=== PATIENT | male | born 1950 | race Hispanic/Latino ===

== ENCOUNTER 2017-03-28 07:00 | Day surgery (SDC) | payer MEDICARE, MEDICAID ==
[2017-03-28] MEDS ORDERED: Bupivacaine 0.5% Inj(30mL) ONE (09:01)
[2017-03-28] MEDS ORDERED: Lidocaine 1% Inj (20ml) ONE (09:12)
[2017-03-28] MEDS ORDERED: Propofol 10 mg/ml Inj (20 ML) ONE (09:12)
[2017-03-28] MEDS ORDERED: Etomidate 20 mg/10ml Inj IV ONE (09:12)
[2017-03-28] MEDS ORDERED: Sevoflurane - Inhalation Anesthetic Liq (250 ml) ONE (09:13)
[2017-03-28] MEDS ORDERED: ePHEDrine 50 mg/ml Inj ONE (09:24)
[2017-03-28] MEDS ORDERED: CeFAZolin 1 gm in NS 100ml IVPB ONE (09:30)
[2017-03-28] MEDS ORDERED: Bupivacaine 0.5% Inj(30mL) IJ ONE ×2 (09:41→09:49)
[2017-03-28] MEDS ORDERED: Oxycodone/Acetaminophen 5/325 mg Tab PO PRN (11:02)
[2017-03-28] MEDS ORDERED: HYDROmorphone 0.5 mg/0.5 ml ISec IVP PRN (11:04)
--- NOTE | 2017-03-28 11:07 | PCM.SURG1 ---
<Vani Cerna - Last Filed: 03/28/17 11:04> Surgeon's Initial Post Op Note - Surgeon's Notes Surgeon: Dr. Gil Bead Wrapper: Carissa Stack, PGY3. Vani Cerna, PGY2 Type of Anesthesia: General LMA Pre-Operative Diagnosis: left inguinal hernia Operative Findings: left indirect inguinal hernia Post-Operative Diagnosis: same Operation Performed: left inguinal hernia reapir with mesh Specimen/Specimens Removed: hernia sac Estimated Blood Loss: EBL {In ML}: 5 Post-Op Condition: Fair Date of Surgery/Procedure: 03/28/17 Time of Surgery/Procedure: 09:15 <Dillan Gil - Last Filed: 03/28/17 23:54> Surgeon's Initial Post Op Note - Surgeon's Notes Pre-Operative Diagnosis: incarcerated left inguinal hernia Operative Findings: incarcerated left indirect inguinal hernia Operation Performed: repair of incarcerated left inguinal hernia
[2017-03-28] MEDS ORDERED: Lactated Ringer's 1,000 ML IV SCH (11:15)
[2017-03-28] MEDS ORDERED: Oxycodone/Acetaminophen 5/325 mg Tab ONE (11:30)
[2017-03-28 11:58] VITALS: BP 107/66; PULSE 73; RESP 20; TEMP 97.7; O2SAT 96
[2017-03-28 12:43] VITALS: BMI 21.7
--- NOTE | 2017-04-05 00:53 | OP ---
PROCEDURE DATE: 03/28/2017 PREOPERATIVE DIAGNOSIS: Incarcerated left inguinal hernia. POSTOPERATIVE DIAGNOSIS: Incarcerated left inguinal hernia. PROCEDURE PERFORMED: Repair of the left incarcerated inguinal hernia. SURGEON: Dillan Gil MD. BLOCK CLEANER: Dr. Cerna and Dr. Stack. ANESTHESIOLOGIST: Dr. Pierson. ANESTHESIA: General endotracheal anesthesia. ESTIMATED BLOOD LOSS: Minimal. SPECIMEN: None. INDICATION: Patient is a 66-year-old male with history of left groin pain associated with tenderness and discomfort. Patent was seen in the office, noted to have a left inguinal hernia, which was incarcerated and was scheduled for the repair. DESCRIPTION OF PROCEDURE: Patient was brought to the operating room, placed on the operating table in a supine position. Patient was connected to the EKG, blood pressure and pulse oximetry monitors. Patient then underwent general endotracheal anesthesia and was prepped and draped in usual sterile fashion. First, standard time-out procedure took place and everybody in the room were agreed as to the patient identity, diagnosis and procedure to be performed. Using lidocaine mixed with Marcaine, the area of the incision was infiltrated and carefully infusion made through the skin, subcutaneous fat, down to the external oblique aponeurosis. This was then incised along its fibers and elevated on to mosquito clamps. The Weitlaner retractor was placed in and spread external oblique aponeurosis. This exposed the spermatic cord with its structures and the hernia within it. A careful dissection was done in order to separate the hernia sac from the cord structures and in order to reduce the hernia, carefully the neck of the hernia was incised in order to loosen up and remove the content of the hernia which was omentum. Once this was done, the hernia itself was sutured over and placed back into the abdominal cavity. The hernia appeared to be a direct hernia and therefore the sac was not resected. Once this was done, I then carefully entered the internal inguinal ring and dissected out the preperitoneal fat. Next, an UltraPro mesh was placed into the defect and spread underneath floor of the inguinal canal through the internal ring of the inguinal canal. The external portion of the mesh patch was then spread flatly on the floor of the inguinal canal and the keyhole was cut out for exit site of the spermatic cord with structures. Once this was all placed flatly on the floor, the ilioinguinal nerve was identified and carefully pushed to side in order to avoid injury. The external oblique aponeurosis was then carefully closed using 3-0 Vicryl. The subcutaneous tissues were infiltrated with lidocaine mixed with Toradol. The skin was closed using 3-0 Vicryl for the deep dermal layer and 4-0 Monocryl for skin. Sterile Dermabond dressing was applied to the wound. Patient tolerated the procedure well and there were no complications. Patient was awakened and transferred to the recovery room for further observation. Dillan Gil MD
== END 2017-03-28 12:30 | disposition home or self-care (01) ==
LOC: SDS 07:00
PROVIDERS: ATTEND General Practice
DX: K40.30 Unilateral inguinal hernia, with obstruction, without gangrene, not specified as recurrent (principal); I10 Essential (primary) hypertension; E11.9 Type 2 diabetes mellitus without complications; Z79.4 Long term (current) use of insulin
CPT/HCPCS: 49507; 88302; C1781; J0690; J1170; J1885; J2405; J2704; J3010; J7120 ×2

== ENCOUNTER 2018-01-18 21:28 | Inpatient (IN) | payer MEDICARE, MEDICAID ==
--- NOTE | 2018-01-18 22:00 | ED PDOC ---
Arrival/HPI - General Chief Complaint: Altered Mental Status Time Seen by Provider: 01/18/18 21:36 Historian: Patient - History of Present Illness Narrative History of Present Illness (Text): 01/18/18 22:00 Antonio Meeks is a 67 year old male, whose past medical history includes Hepatitis C, liver failure, COPD, hypertension, diabetes, diverticulitis s/p colon resection, GERD, and anxiety, who presents to the emergency department brought in by EMS accompanied by daughter for altered mental status, possible drug overdose. As per daughter, patient has been sleeping throughout the day and did not eat or drink much food. Daughter states tonight patient would not respond to any question and they became concerned, notifying EMS. Patient states he took 30 Xanax today because he felt anxious. Patient denies any suicidal ideation, chest pain, abdominal pain, vomiting, headache, dizziness, or any other complaints. Symptom Onset: Gradual Symptom Course: Unchanged Activities at Onset: Light Context: Home Past Medical History - Provider Review Nursing Documentation Reviewed: Yes - Cardiac Hx Pacemaker: No - Pulmonary Hx Respiratory Disorders: Yes (LUNG COLLAPSE/HISTORY OF CHEST TUBE PLACEMENT) Hx Chronic Obstructive Pulmonary Disease (COPD): Yes Hx Emphysema: Yes Other/Comment: SMOKED 1 PPD X 45 YRS. 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) - Renal Hx Renal Disorder: No - Endocrine/Metabolic Hx Endocrine Disorders: No - Hematological/Oncological Hx Blood Transfusions: Yes Hx Blood Transfusion Reaction: No - Integumentary Hx Dermatological Disorder: No - Musculoskeletal/Rheumatological Hx Musculoskeletal Disorders: Yes - Gastrointestinal Hx Gastrointestinal Disorders: Yes Hx Diverticulitis: Yes Hx Gall Bladder Disease: Yes Hx Gastroesophageal Reflux: Yes Hx Liver Failure: Yes Other/Comment: H/O APPENDECTOMY,SIGMOID COLON DIVERTICULITIS,POST EXPLORATORY LAP SIGMOID COLON RESECTION,RIGHT INGUINAL HERNIA REPAIR,H/O CONSTIPATION - Genitourinary/Gynecological Hx Genitourinary Disorders: No - Psychiatric Hx Emotional Abuse: No Hx Physical Abuse: No Hx Substance Use: Yes (OPIOID USE, RX ) - Surgical History Hx Appendectomy: Yes Hx Cholecystectomy: Yes Other/Comment: EXPLORATORY LAP-SIGMOID COLON RESECTION,PARTIAL COLECTOMY - Anesthesia Hx Anesthesia: No Hx Anesthesia Reactions: No Hx Malignant Hyperthermia: No - Suicidal Assessment Feels Threatened In Home Enviroment: No Family/Social History - Physician Review Nursing Documentation Reviewed: Yes Family/Social History: Unknown Family HX Smoking Status: Current Some Days Smoker Hx Alcohol Use: Yes (PAST ETOH;"QUIT 09/2015 AFTER FALL) Hx Substance Use: Yes (OPIOID USE, RX ) Hx Substance Use Treatment: No Allergies/Home Meds Allergies/Adverse Reactions: Allergies No Known Allergies Allergy (Verified 09/27/15 15:31) Home Medications: Home Meds Medication Instructions Recorded Confirmed RX: Alprazolam [Xanax] 0.05 mg PO TID 10/30/11 03/28/17 RX: Oxycodone HCl [Roxicodone] 20 mg PO Q8 09/29/15 03/28/17 RX: Insulin Detemir [Levemir] 16 unit SC HS 02/18/16 03/28/17 RX: Hydrochlorothiazide [Microzide] 25 mg PO DAILY 02/23/16 03/28/17 amLODIPine [Norvasc] 5 mg PO DAILY 02/23/16 03/28/17 RX: traMADol [Ultram] 50 mg PO Q6 PRN 03/28/17 03/28/17 Review of Systems - Physician Review All systems were reviewed & negative as marked: Yes - Review of Systems Constitutional: Normal. absent: Fevers Eyes: Normal ENT: Normal Respiratory: Normal. absent: SOB, Cough Cardiovascular: Normal. absent: Chest Pain Genitourinary Male: Normal. absent: Dysuria, Frequency, Hematuria, Urinary Output Changes Musculoskeletal: Normal. absent: Back Pain, Neck Pain Skin: Normal. absent: Rash Neurological: Normal. absent: Headache, Dizziness Endocrine: Normal Hemo/Lymphatic: Normal Psychiatric: absent: Suicidal Ideation Physical Exam Vital Signs Reviewed: Yes Vital Signs Temp Pulse Resp BP Pulse Ox 01/18/18 21:37 97.5 F L 82 18 134/92 H 95 Temperature: Afebrile Blood Pressure: Normal Pulse: Regular Respiratory Rate: Normal Appearance: Positive for: Well-Appearing, Non-Toxic, Comfortable Pain Distress: None Mental Status: Positive for: other (Awake, drowsy) Finger Stick Blood Glucose: 85 - Systems Exam Head: Present: Atraumatic, Normocephalic Pupils: Present: PERRL Extroacular Muscles: Present: EOMI Conjunctiva: Present: Normal Mouth: Present: Moist Mucous Membranes Neck: Present: Normal Range of Motion Respiratory/Chest: Present: Clear to Auscultation, Good Air Exchange. No: Respiratory Distress, Accessory Muscle Use Cardiovascular: Present: Regular Rate and Rhythm, Normal S1, S2. No: Murmurs Abdomen: No: Tenderness, Distention, Peritoneal Signs Back: Present: Normal Inspection Upper Extremity: Present: Normal Inspection. No: Cyanosis, Edema Lower Extremity: Present: Normal Inspection. No: Edema Neurological: Present: GCS=15, CN II-XII Intact, Speech Normal Skin: Present: Warm, Dry, Normal Color. No: Rashes Psychiatric: Present: Other (Awake, drowsy) Medical Decision Making ED Course and Treatment: 01/18/18 22:00 Impression: 67 year old male brought in for altered mental status, possible drug overdose tonight. Plan: -- EKG -- CXR -- Labs, alcohol level -- Urinalysis, urine drug screen -- Reassess and disposition Prior Visits: Notes and results from previous visits were reviewed. Progress Notes: Reviewed EKG, NSr at 84 bpm[address] Non-specific ST/T wave changes. 01/18/18 22:40 CXR reviewed, shows no acute processes. 01/19/18 00:[address] Arredondo, dance studio manager, who is aware and agrees to evaluate pt for ICU admission. 01/19/18 00:[address] Messina, who is aware and agrees with plan. Accepts pt in to her service. Pt will be admitted to ICU for drug overdose. - Critical Care Critical Care Minutes: 30 minutes - Lab Interpretations I have reviewed the lab results: Yes - RAD Interpretation Sales Order Clerk: ED Physician - EKG Interpretation Interpreted by ED Physician: Yes Type: 12 lead EKG - Scribe Statement The provider has reviewed the documentation as recorded by the Lisa López Provider Scribe Attestation: All medical record entries made by the Scribjuan manuel were at my direction and personally dictated by me. I have reviewed the chart and agree that the record accurately reflects my personal performance of the history, physical exam, medical decision making, and the department course for this patient. I have also personally directed, reviewed, and agree with the discharge instructions and disposition. Disposition/Present on Arrival - Present on Arrival Any Indicators Present on Arrival: No History of DVT/PE: No History of Uncontrolled Diabetes: No Urinary Catheter: No History of Decub. Ulcer: No History Surgical Site Infection Following: None - Disposition Have Diagnosis and Disposition been Completed?: Yes Diagnosis: Benzodiazepine overdose Disposition: HOSPITALIZED Disposition Time: 00:24 Patient Plan: Admission Patient Problems: Current Active Problems Problem Status Onset Benzodiazepine overdose Acute Condition: STABLE
[2018-01-18 22:25] LABS: BASO # 0.01 K/mm3 (0.0-2.0); BASO % 0.1 % (0.0-3.0); EOS # 0.2 (0.0-0.7); EOS % 1.7 % (1.5-5.0); GRAN # 6.69 (1.4-6.5); GRAN % 73.8 % (50.0-68.0); HEMOGLOBIN 16.3 g/dL (14.0-18.0); LYMPH # 1.2 (1.2-3.4); LYMPH % 13.3 % (22.0-35.0); MEAN CELL VOLUME 91.7 fl (80.0-105.0); MEAN CORPUSCULAR HEMOGLOBIN 32.3 pg (25.0-35.0); MEAN CORPUSCULAR HGB CONC 35.2 g/dl (31.0-37.0); MEAN PLATELET VOLUME 8.9 fl (7.0-11.0); MONO % 11.1 % (1.0-6.0); RBC 5.05 10^6/uL (3.5-6.1); RED CELL DISTRIBUTION WIDTH 13.5 % (11.5-14.5); WHITE BLOOD COUNT 9.1 10^3/uL (4.5-11.0)
[2018-01-18 22:33] LABS: ALB/GLOB RATIO 1.2 (1.1-1.8); ALBUMIN 4.1 g/dL (3.0-4.8); ALT/SGPT 39 U/L (7-56); AST/SGOT 33 U/L (17-59); BLOOD UREA NITROGEN 13 mg/dL (7-21); CALCIUM 8.9 mg/dL (8.4-10.5); GFR NON-AFRICAN AMERICAN > 60
[2018-01-18 22:34] LABS: ACETAMINOPHEN < 10.0 ug/ml (10.0-20.0); SALICYLATE < 1 mg/dL (2.0-20.0)
[2018-01-19] MEDS: Sodium Chloride 0.9% 1,000 ML IV SCH ×3 (00:57→22:26)
--- NOTE | 2018-01-19 04:58 | CP.PCM.HP ---
<Tariq Dill - Last Filed: 01/19/18 05:19> History of Present Illness - History of Present Illness History of Present Illness: H&P for Hsopitalist Service Tariq Fuentes PGY1 Chief complaint: Xanax overdose Patient is a 67 male with a past medical history of hypertension, COPD, chronic back pain, hepatitis C (untreated), pancreatitis, alcohol abuse, IDDM presenting s/p xanax overdose. As per patient's daughter, patient seems to be depressed as of late. States his girlfriend recently stopped communicating with him. Patient lives at home with and daughter. As per patient ad patient's daughter this past day prior to taking too many xanax was like any normal day where he wakes up gets breakfast from his ex and yells all day at everyone. During patient encounter he was laughing t times and asking to leave AMA. Patient states he did not take the xanax with hopes of hurting himself but mainly to help him sleep however patient took all pills at once. As per daughter this is the third time patient has attempted to overdose on medications. ROS limited due to patient's condition. PMD: Dr. Vásquez Medications: Xanax 0.5 TID Surgical Hx: inguinal hernia repair Allergies: NKDA Family Hx: Non-contributory Social history: admits to tobacco use Present on Admission - Present on Admission Any Indicators Present on Admission: No Review of Systems - Review of Systems Systems not reviewed;Unavailable: Uncooperative Past Patient History - Past Social History Smoking Status: Current Some Days Smoker - CARDIAC Hx Pacemaker: No - PULMONARY Hx Respiratory Disorders: Yes (LUNG COLLAPSE/HISTORY OF CHEST TUBE PLACEMENT) Hx Chronic Obstructive Pulmonary Disease (COPD): Yes Hx Emphysema: Yes Other/Comment: SMOKED 1 PPD X 45 YRS. 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) - RENAL Hx Chronic Kidney Disease: No - ENDOCRINE/METABOLIC Hx Endocrine Disorders: No - HEMATOLOGICAL/ONCOLOGICAL Hx Blood Transfusions: Yes Hx Blood Transfusion Reaction: No - INTEGUMENTARY Hx Dermatological Problems: No - MUSCULOSKELETAL/RHEUMATOLOGICAL Hx Musculoskeletal Disorders: Yes - GASTROINTESTINAL Hx Gastrointestinal Disorders: Yes Hx Diverticulitis: Yes Hx Gall Bladder Disease: Yes Hx Gastroesophageal Reflux: Yes Hx Liver Failure: Yes Other/Comment: H/O APPENDECTOMY,SIGMOID COLON DIVERTICULITIS,POST EXPLORATORY LAP SIGMOID COLON RESECTION,RIGHT INGUINAL HERNIA REPAIR,H/O CONSTIPATION - GENITOURINARY/GYNECOLOGICAL Hx Genitourinary Disorders: No - PSYCHIATRIC Hx Emotional Abuse: No Hx Physical Abuse: No Hx Substance Use: Yes (OPIOID USE, RX ) - SURGICAL HISTORY Hx Appendectomy: Yes Hx Cholecystectomy: Yes Other/Comment: EXPLORATORY LAP-SIGMOID COLON RESECTION,PARTIAL COLECTOMY - ANESTHESIA Hx Anesthesia: No Hx Anesthesia Reactions: No Hx Malignant Hyperthermia: No Meds Allergies/Adverse Reactions: Allergies Allergy/AdvReac Type Severity Reaction Status Date / Time No Known Allergies Allergy Verified 09/27/15 15:31 Physical Exam - Head Exam Head Exam: ATRAUMATIC, NORMAL INSPECTION, NORMOCEPHALIC - Eye Exam Eye Exam: Normal appearance - ENT Exam ENT Exam: Mucous Membranes Moist, Normal Exam - Neck Exam Neck exam: Positive for: Normal Inspection - Respiratory Exam Respiratory Exam: Clear to Auscultation Bilateral, NORMAL BREATHING PATTERN. absent: Rhonchi, Wheezes - Cardiovascular Exam Cardiovascular Exam: REGULAR RHYTHM, +S1, +S2 - GI/Abdominal Exam GI & Abdominal Exam: Normal Bowel Sounds, Soft - Extremities Exam Extremities exam: Positive for: normal inspection - Back Exam Back exam: NORMAL INSPECTION - Neurological Exam Neurological exam: Alert - Psychiatric Exam Psychiatric exam: Normal Affect, Normal Mood - Skin Skin Exam: Normal Color, Warm Results - Vital Signs Recent Vital Signs: Last Vital Signs Temp 98.5 F 01/19/18 03:00 Pulse 82 01/19/18 04:00 Resp 17 01/19/18 04:00 BP 127/84 01/19/18 02:15 Pulse Ox 93 L 01/19/18 04:00 - Labs Result Diagrams: 01/18/18 22:19 01/18/18 22:19 Labs: Laboratory Results - last 24 hr 01/18/18 01/18/18 01/18/18 22:19 22:19 22:19 WBC 9.1 RBC 5.05 Hgb 16.3 Hct 46.3 MCV 91.7 MCH 32.3 MCHC 35.2 RDW 13.5 Plt Count 204 MPV 8.9 Gran % 73.8 H Lymph % (Auto) 13.3 L [place] % (Auto) 11.1 H Eos % (Auto) 1.7 Baso % (Auto) 0.1 Gran # 6.69 H Lymph # (Auto) 1.2 [place] # (Auto) 1.0 H Eos # (Auto) 0.2 Baso # (Auto) 0.01 Sodium 140 Potassium 3.9 Chloride 105 Carbon Dioxide 28 Anion Gap 11 BUN 13 Creatinine 0.8 Est GFR ( Amer) > 60 Est GFR (Non-Af Amer) > 60 Random Glucose 93 Calcium 8.9 Total Bilirubin 0.8 AST 33 ALT 39 Alkaline Phosphatase 108 Total Protein 7.3 Albumin 4.1 Globulin 3.3 Albumin/Globulin Ratio 1.2 Salicylates < 1 L Acetaminophen < 10.0 L Alcohol, Quantitative 01/18/18 22:19 WBC RBC Hgb Hct MCV MCH MCHC RDW Plt Count MPV Gran % Lymph % (Auto) [place] % (Auto) Eos % (Auto) Baso % (Auto) Gran # Lymph # (Auto) [place] # (Auto) Eos # (Auto) Baso # (Auto) Sodium Potassium Chloride Carbon Dioxide Anion Gap BUN Creatinine Est GFR ( Amer) Est GFR (Non-Af Amer) Random Glucose Calcium Total Bilirubin AST ALT Alkaline Phosphatase Total Protein Albumin Globulin Albumin/Globulin Ratio Salicylates Acetaminophen Alcohol, Quantitative < 10 Assessment & Plan - Assessment and Plan (Free Text) Assessment: Patient is a 67 male with a past medical history of hypertension and NIDDM presenting s/p xanax overdose. Plan: Neuro/Psych -AAOx2 -Continue to monitor patient's mental status -Psychiatry consulted for patient's depression -Continue with 1:1 sitter for suicidal ideation Cardiovascular -Maintain MAP >65 -Keep normotensive Pulmonary -Keep O2 sat >92% -Duonebs PRN Endocrine -ISS-low -accuchecks -Maintain eugylcemia -Insulin on Hold due to blood glucose 93 Genitourinary -IVF@100 -Bladder scan -I&O -Maintain electrolytes and replete as needed -Maintain euvolemia DVT ppx: SCDs <Ryan Arredondo - Last Filed: 01/19/18 19:06> Results - Vital Signs Recent Vital Signs: Last Vital Signs Temp 98.8 F 01/19/18 16:00 Pulse 89 01/19/18 16:12 Resp 21 01/19/18 16:12 BP 125/83 01/19/18 16:12 Pulse Ox 94 L 01/19/18 16:12 - Labs Result Diagrams: 01/19/18 08:15 01/19/18 08:15 Labs: Laboratory Results - last 24 hr 01/18/18 01/18/18 01/18/18 22:19 22:19 22:19 WBC 9.1 RBC 5.05 Hgb 16.3 Hct 46.3 MCV 91.7 MCH 32.3 MCHC 35.2 RDW 13.5 Plt Count 204 MPV 8.9 Gran % 73.8 H Lymph % (Auto) 13.3 L [place] % (Auto) 11.1 H Eos % (Auto) 1.7 Baso % (Auto) 0.1 Gran # 6.69 H Lymph # (Auto) 1.2 [place] # (Auto) 1.0 H Eos # (Auto) 0.2 Baso # (Auto) 0.01 Sodium 140 Potassium 3.9 Chloride 105 Carbon Dioxide 28 Anion Gap 11 BUN 13 Creatinine 0.8 Est GFR ( Amer) > 60 Est GFR (Non-Af Amer) > 60 Random Glucose 93 Calcium 8.9 Total Bilirubin 0.8 AST 33 ALT 39 Alkaline Phosphatase 108 Total Protein 7.3 Albumin 4.1 Globulin 3.3 Albumin/Globulin Ratio 1.2 Salicylates < 1 L Acetaminophen < 10.0 L Alcohol, Quantitative 01/18/18 01/19/18 01/19/18 22:19 08:15 08:15 WBC 8.8 RBC 5.17 Hgb 16.3 Hct 47.9 MCV 92.6 MCH 31.5 MCHC 34.0 RDW 13.6 Plt Count 177 MPV 8.9 Gran % 74.6 H Lymph % (Auto) 12.6 L [place] % (Auto) 11.1 H Eos % (Auto) 1.6 Baso % (Auto) 0.1 Gran # 6.59 H Lymph # (Auto) 1.1 L [place] # (Auto) 1.0 H Eos # (Auto) 0.1 Baso # (Auto) 0.01 Sodium 142 Potassium 4.1 Chloride 107 Carbon Dioxide 27 Anion Gap 13 BUN 15 Creatinine 0.8 Est GFR ( Amer) > 60 Est GFR (Non-Af Amer) > 60 Random Glucose 97 Calcium 8.9 Total Bilirubin 0.7 AST 43 ALT 48 Alkaline Phosphatase 113 Total Protein 7.4 Albumin 4.1 Globulin 3.3 Albumin/Globulin Ratio 1.2 Salicylates Acetaminophen Alcohol, Quantitative < 10 Attending/Attestation - Attestation I have personally seen and examined this patient.: Yes I have fully participated in the care of the patient.: Yes I have reviewed all pertinent clinical information: Yes
[2018-01-19 05:04] VITALS: BMI 20.3
[2018-01-19] MEDS: Pantoprazole 40 mg EC Tab PO SCH (08:09)
[2018-01-19 08:35] LABS: BASO # 0.01 K/mm3 (0.0-2.0); BASO % 0.1 % (0.0-3.0); EOS # 0.1 (0.0-0.7); EOS % 1.6 % (1.5-5.0); GRAN # 6.59 (1.4-6.5); GRAN % 74.6 % (50.0-68.0); HEMOGLOBIN 16.3 g/dL (14.0-18.0); LYMPH # 1.1 (1.2-3.4); LYMPH % 12.6 % (22.0-35.0); MEAN CELL VOLUME 92.6 fl (80.0-105.0); MEAN CORPUSCULAR HEMOGLOBIN 31.5 pg (25.0-35.0); MEAN PLATELET VOLUME 8.9 fl (7.0-11.0); MONO % 11.1 % (1.0-6.0); RBC 5.17 10^6/uL (3.5-6.1); RED CELL DISTRIBUTION WIDTH 13.6 % (11.5-14.5); WHITE BLOOD COUNT 8.8 10^3/uL (4.5-11.0)
[2018-01-19 08:58] LABS: ALB/GLOB RATIO 1.2 (1.1-1.8); ALBUMIN 4.1 g/dL (3.0-4.8); ALT/SGPT 48 U/L (7-56); AST/SGOT 43 U/L (17-59); BLOOD UREA NITROGEN 15 mg/dL (7-21); CALCIUM 8.9 mg/dL (8.4-10.5); GFR NON-AFRICAN AMERICAN > 60
[2018-01-19] MEDS ORDERED: Dextrose 50% SYRINGE Inj (50 ml) IV PRN (09:24)
--- NOTE | 2018-01-19 09:27 | CP.CCUPN ---
<Antonio Mejia - Last Filed: 01/19/18 12:41> CCU Subjective - Physician Review Subjective (Free Text): Antonio Mejia DO, PGY1. ICU progress note for Dr Frederick Patient seen and examined at bedside. He is AAOx3, in NAD but feeling sad and not answering questions, frequently says that he wants to go home. He denied any complains . No acute events overnight. Patient denied CP, SOB, fever, palpitations, N/V/D, focal neurologic deficits CCU Objective - Vital Signs / Intake & Output Vital Signs (Last 4 hours): Vital Signs Temp Pulse Resp BP Pulse Ox 01/19/18 08:00 89 17 92 L 01/19/18 07:49 92 H 20 141/73 95 01/19/18 07:20 91 H 134/94 H 93 L 01/19/18 07:19 89 21 129/87 93 L 01/19/18 07:00 83 22 92 L 01/19/18 06:00 98.6 F 85 21 93 L 01/19/18 05:43 88 17 129/84 91 L 01/19/18 05:40 87 17 91 L 01/19/18 05:30 86 18 92 L Intake and Output (Last 8hrs): Intake & Output 01/18/18 01/19/18 01/19/18 22:59 06:59 14:59 Intake Total 700 Output Total 0 Balance 700 Weight 138 lb 138 lb Intake: IV 700 Left Wrist 700 Oral 0 Output: Urine 0 Urine, Voided 0 Other: # Bowel Movements 0 - Physical Exam Head: Positive for: Atraumatic, Normocephalic Pupils: Positive for: PERRL Extroacular Muscles: Positive for: EOMI Conjunctiva: Positive for: Normal Mouth: Positive for: Moist Mucous Membranes Neck: Positive for: Normal Range of Motion Respiratory/Chest: Positive for: Clear to Auscultation, Good Air Exchange. Negative for: Respiratory Distress, Accessory Muscle Use Cardiovascular: Positive for: Regular Rate and Rhythm, Normal S1, S2. Negative for: Murmurs Abdomen: Negative for: Tenderness, Distention, Peritoneal Signs Back: Positive for: Normal Inspection Upper Extremity: Positive for: Normal Inspection. Negative for: Cyanosis, Edema Lower Extremity: Positive for: Normal Inspection. Negative for: Edema Neurological: Positive for: CN II-XII Intact, Speech Normal, Motor Func Grossly Intact Skin: Positive for: Warm, Dry, Normal Color. Negative for: Rashes Psychiatric: Positive for: Oriented x 3, Anxious, Depressed Mood - Medications Active Medications: Active Medications Generic Name Dose Route Start Last Admin Trade Name Freq PRN Reason Stop Dose Admin Amlodipine Besylate 5 mg 01/19/18 10:00 Norvasc PO DAILY MARLEN Dextrose 0 ml 01/19/18 09:24 Dextrose 50% Inj IV STAT PRN Hypoglycemia Protocol Protocol Sodium Chloride 1,000 mls @ 100 mls/hr 01/19/18 00:45 01/19/18 00:57 Sodium Chloride 0.9% IV 100 mls/hr .Q10H MARLEN Administration Dextrose 1,000 mls @ 0 mls/hr 01/19/18 09:24 Dextrose 5% In Water 1000 Ml IV .Q0M PRN Hypoglycemia Protocol Protocol Per Protocol Insulin Detemir 10 unit 01/19/18 22:00 Levemir SC HS [facility] Pantoprazole Sodium 40 mg 01/19/18 06:00 01/19/18 08:09 Protonix Ec Tab PO 40 mg 0600 MARLEN Administration - Patient Studies Lab Studies: Lab Studies 01/19/18 01/19/18 01/18/18 Range/Units 08:15 08:15 22:19 WBC 8.8 (4.5-11.0) 10^3/uL RBC 5.17 (3.5-6.1) 10^6/uL Hgb 16.3 (14.0-18.0) g/dL Hct 47.9 (42.0-52.0) % MCV 92.6 (80.0-105.0) fl MCH 31.5 (25.0-35.0) pg MCHC 34.0 (31.0-37.0) g/dl RDW 13.6 (11.5-14.5) % Plt Count 177 (120.0-450.0) 10^3/uL MPV 8.9 (7.0-11.0) fl Gran % 74.6 H (50.0-68.0) % Lymph % (Auto) 12.6 L (22.0-35.0) % [place] % (Auto) 11.1 H (1.0-6.0) % Eos % (Auto) 1.6 (1.5-5.0) % Baso % (Auto) 0.1 (0.0-3.0) % Gran # 6.59 H (1.4-6.5) Lymph # (Auto) 1.1 L (1.2-3.4) [place] # (Auto) 1.0 H (0.1-0.6) Eos # (Auto) 0.1 (0.0-0.7) Baso # (Auto) 0.01 (0.0-2.0) K/mm3 Sodium 142 (132-148) mmol/L Potassium 4.1 (3.6-5.0) mmol/L Chloride 107 (98-107) mmol/L Carbon Dioxide 27 (21-33) mmol/L Anion Gap 13 (10-20) BUN 15 (7-21) mg/dL Creatinine 0.8 (0.8-1.5) mg/dl Est GFR ( Amer) > 60 Est GFR (Non-Af Amer) > 60 Random Glucose 97 (70-110) mg/dL Calcium 8.9 (8.4-10.5) mg/dL Total Bilirubin 0.7 (0.2-1.3) mg/dL AST 43 (17-59) U/L ALT 48 (7-56) U/L Alkaline Phosphatase 113 (38-126) U/L Total Protein 7.4 (5.8-8.3) g/dL Albumin 4.1 (3.0-4.8) g/dL Globulin 3.3 gm/dL Albumin/Globulin Ratio 1.2 (1.1-1.8) Salicylates (2.0-20.0) mg/dL Acetaminophen (10.0-20.0) ug/ml Alcohol, Quantitative < 10 (0-10) mg/dL 01/18/18 01/18/18 01/18/18 Range/Units 22:19 22:19 22:19 WBC 9.1 (4.5-11.0) 10^3/uL RBC 5.05 (3.5-6.1) 10^6/uL Hgb 16.3 (14.0-18.0) g/dL Hct 46.3 (42.0-52.0) % MCV 91.7 (80.0-105.0) fl MCH 32.3 (25.0-35.0) pg MCHC 35.2 (31.0-37.0) g/dl RDW 13.5 (11.5-14.5) % Plt Count 204 (120.0-450.0) 10^3/uL MPV 8.9 (7.0-11.0) fl Gran % 73.8 H (50.0-68.0) % Lymph % (Auto) 13.3 L (22.0-35.0) % [place] % (Auto) 11.1 H (1.0-6.0) % Eos % (Auto) 1.7 (1.5-5.0) % Baso % (Auto) 0.1 (0.0-3.0) % Gran # 6.69 H (1.4-6.5) Lymph # (Auto) 1.2 (1.2-3.4) [place] # (Auto) 1.0 H (0.1-0.6) Eos # (Auto) 0.2 (0.0-0.7) Baso # (Auto) 0.01 (0.0-2.0) K/mm3 Sodium 140 (132-148) mmol/L Potassium 3.9 (3.6-5.0) mmol/L Chloride 105 (98-107) mmol/L Carbon Dioxide 28 (21-33) mmol/L Anion Gap 11 (10-20) BUN 13 (7-21) mg/dL Creatinine 0.8 (0.8-1.5) mg/dl Est GFR ( Amer) > 60 Est GFR (Non-Af Amer) > 60 Random Glucose 93 (70-110) mg/dL Calcium 8.9 (8.4-10.5) mg/dL Total Bilirubin 0.8 (0.2-1.3) mg/dL AST 33 (17-59) U/L ALT 39 (7-56) U/L Alkaline Phosphatase 108 (38-126) U/L Total Protein 7.3 (5.8-8.3) g/dL Albumin 4.1 (3.0-4.8) g/dL Globulin 3.3 gm/dL Albumin/Globulin Ratio 1.2 (1.1-1.8) Salicylates < 1 L (2.0-20.0) mg/dL Acetaminophen < 10.0 L (10.0-20.0) ug/ml Alcohol, Quantitative (0-10) mg/dL Laboratory Results - last 24 hr 01/18/18 01/18/18 01/18/18 22:19 22:19 22:19 WBC 9.1 RBC 5.05 Hgb 16.3 Hct 46.3 MCV 91.7 MCH 32.3 MCHC 35.2 RDW 13.5 Plt Count 204 MPV 8.9 Gran % 73.8 H Lymph % (Auto) 13.3 L [place] % (Auto) 11.1 H Eos % (Auto) 1.7 Baso % (Auto) 0.1 Gran # 6.69 H Lymph # (Auto) 1.2 [place] # (Auto) 1.0 H Eos # (Auto) 0.2 Baso # (Auto) 0.01 Sodium 140 Potassium 3.9 Chloride 105 Carbon Dioxide 28 Anion Gap 11 BUN 13 Creatinine 0.8 Est GFR ( Amer) > 60 Est GFR (Non-Af Amer) > 60 Random Glucose 93 Calcium 8.9 Total Bilirubin 0.8 AST 33 ALT 39 Alkaline Phosphatase 108 Total Protein 7.3 Albumin 4.1 Globulin 3.3 Albumin/Globulin Ratio 1.2 Salicylates < 1 L Acetaminophen < 10.0 L Alcohol, Quantitative 01/18/18 01/19/18 01/19/18 22:19 08:15 08:15 WBC 8.8 RBC 5.17 Hgb 16.3 Hct 47.9 MCV 92.6 MCH 31.5 MCHC 34.0 RDW 13.6 Plt Count 177 MPV 8.9 Gran % 74.6 H Lymph % (Auto) 12.6 L [place] % (Auto) 11.1 H Eos % (Auto) 1.6 Baso % (Auto) 0.1 Gran # 6.59 H Lymph # (Auto) 1.1 L [place] # (Auto) 1.0 H Eos # (Auto) 0.1 Baso # (Auto) 0.01 Sodium 142 Potassium 4.1 Chloride 107 Carbon Dioxide 27 Anion Gap 13 BUN 15 Creatinine 0.8 Est GFR ( Amer) > 60 Est GFR (Non-Af Amer) > 60 Random Glucose 97 Calcium 8.9 Total Bilirubin 0.7 AST 43 ALT 48 Alkaline Phosphatase 113 Total Protein 7.4 Albumin 4.1 Globulin 3.3 Albumin/Globulin Ratio 1.2 Salicylates Acetaminophen Alcohol, Quantitative < 10 EKG/Cardiology Studies: Cardiology / EKG Studies 01/18/18 22:02 ELECTROCARDIOGRAM Stat Comment: Reason For Exam: overdose 01/19/18 07:32 EKG [ELECTROCARDIOGRAM] Stat Comment: Reason For Exam: drug overdose Fingerstick Blood Sugar Results: 85 Assessment/Plan - Assessment and Plan (Free Text) Assessment: 67 y/o male with PMH of HTN, DM2, COPD, chronic back pain, alcohol use admitted to ICU for monitoring after xanax intoxication. Doing well, vitals stable, no respiratory distress, no focal neurologic signs/symptoms Plan: Neuro/psych: -AAOx3 in depressed mood, no focal neurologic deficits -drepression with questionable suicide attempt. psych consulted -no active suicidal/homicidal ideation, no psychosis -maintain normothermia CVS: -EKG: NSR, no QTc prolongation -resume home med norvasc 5 mg daily -maintain MAP>65 Resp: -no respiratory distress or depression -h/o COPD -O2 supp, duoneb prn -maintain O2 sat>90% GI: -h/o untreared HCV, GERD -continue home med pantoprazole Renal/: -BUN/Cr, lytes are wnl -UDS: negative -continue NS @100cc/hr -maintain euvolemia Endo: -h/o DM -continue home med levemir 10units daily -ISS-low -accucheck ID -no leukocytosis, afebrile Prophylaxis: -DVT ppx: SCD -GI ppx: protonix Heart healthy diet Dispo: Doing well, vitals stable, no respiratory distress, no focal neurologic signs/symptoms, transfer to med/surg Case reviewed and plan discussed with attending Dr Finn Mejia, DO PGY1 <Izaiah Briseno - Last Filed: 01/19/18 14:58> CCU Objective - Vital Signs / Intake & Output Intake and Output (Last 8hrs): Intake & Output 01/18/18 01/19/18 01/19/18 22:59 06:59 14:59 Intake Total 700 Output Total 0 Balance 700 Weight 62.596 kg 62.188 kg Intake: IV 700 Left Wrist 700 Oral 0 Output: Urine 0 Urine, Voided 0 Other: # Bowel Movements 0 - Medications Active Medications: Active Medications Generic Name Dose Route Start Last Admin Trade Name Freq PRN Reason Stop Dose Admin Amlodipine Besylate 5 mg 01/19/18 10:00 01/19/18 10:04 Norvasc PO 5 mg DAILY MARLEN Administration Dextrose 0 ml 01/19/18 09:24 Dextrose 50% Inj IV STAT PRN Hypoglycemia Protocol Protocol Sodium Chloride 1,000 mls @ 100 mls/hr 01/19/18 00:45 01/19/18 12:45 Sodium Chloride 0.9% IV 100 mls/hr .Q10H MARLEN Administration Dextrose 1,000 mls @ 0 mls/hr 01/19/18 09:24 Dextrose 5% In Water 1000 Ml IV .Q0M PRN Hypoglycemia Protocol Protocol Per Protocol Insulin Detemir 10 unit 01/19/18 22:00 Levemir SC HS [facility] Nicotine 1 patch 01/19/18 14:30 Nicoderm Cq TD DAILY [facility] Pantoprazole Sodium 40 mg 01/19/18 06:00 01/19/18 08:09 Protonix Ec Tab PO 40 mg 0600 MARLEN Administration - Patient Studies Lab Studies: Lab Studies 01/19/18 01/19/18 01/18/18 Range/Units 08:15 08:15 22:19 WBC 8.8 (4.5-11.0) 10^3/uL RBC 5.17 (3.5-6.1) 10^6/uL Hgb 16.3 (14.0-18.0) g/dL Hct 47.9 (42.0-52.0) % MCV 92.6 (80.0-105.0) fl MCH 31.5 (25.0-35.0) pg MCHC 34.0 (31.0-37.0) g/dl RDW 13.6 (11.5-14.5) % Plt Count 177 (120.0-450.0) 10^3/uL MPV 8.9 (7.0-11.0) fl Gran % 74.6 H (50.0-68.0) % Lymph % (Auto) 12.6 L (22.0-35.0) % [place] % (Auto) 11.1 H (1.0-6.0) % Eos % (Auto) 1.6 (1.5-5.0) % Baso % (Auto) 0.1 (0.0-3.0) % Gran # 6.59 H (1.4-6.5) Lymph # (Auto) 1.1 L (1.2-3.4) [place] # (Auto) 1.0 H (0.1-0.6) Eos # (Auto) 0.1 (0.0-0.7) Baso # (Auto) 0.01 (0.0-2.0) K/mm3 Sodium 142 (132-148) mmol/L Potassium 4.1 (3.6-5.0) mmol/L Chloride 107 (98-107) mmol/L Carbon Dioxide 27 (21-33) mmol/L Anion Gap 13 (10-20) BUN 15 (7-21) mg/dL Creatinine 0.8 (0.8-1.5) mg/dl Est GFR ( Amer) > 60 Est GFR (Non-Af Amer) > 60 Random Glucose 97 (70-110) mg/dL Calcium 8.9 (8.4-10.5) mg/dL Total Bilirubin 0.7 (0.2-1.3) mg/dL AST 43 (17-59) U/L ALT 48 (7-56) U/L Alkaline Phosphatase 113 (38-126) U/L Total Protein 7.4 (5.8-8.3) g/dL Albumin 4.1 (3.0-4.8) g/dL Globulin 3.3 gm/dL Albumin/Globulin Ratio 1.2 (1.1-1.8) Salicylates (2.0-20.0) mg/dL Acetaminophen (10.0-20.0) ug/ml Alcohol, Quantitative < 10 (0-10) mg/dL 01/18/18 01/18/18 01/18/18 Range/Units 22:19 22:19 22:19 WBC 9.1 (4.5-11.0) 10^3/uL RBC 5.05 (3.5-6.1) 10^6/uL Hgb 16.3 (14.0-18.0) g/dL Hct 46.3 (42.0-52.0) % MCV 91.7 (80.0-105.0) fl MCH 32.3 (25.0-35.0) pg MCHC 35.2 (31.0-37.0) g/dl RDW 13.5 (11.5-14.5) % Plt Count 204 (120.0-450.0) 10^3/uL MPV 8.9 (7.0-11.0) fl Gran % 73.8 H (50.0-68.0) % Lymph % (Auto) 13.3 L (22.0-35.0) % [place] % (Auto) 11.1 H (1.0-6.0) % Eos % (Auto) 1.7 (1.5-5.0) % Baso % (Auto) 0.1 (0.0-3.0) % Gran # 6.69 H (1.4-6.5) Lymph # (Auto) 1.2 (1.2-3.4) [place] # (Auto) 1.0 H (0.1-0.6) Eos # (Auto) 0.2 (0.0-0.7) Baso # (Auto) 0.01 (0.0-2.0) K/mm3 Sodium 140 (132-148) mmol/L Potassium 3.9 (3.6-5.0) mmol/L Chloride 105 (98-107) mmol/L Carbon Dioxide 28 (21-33) mmol/L Anion Gap 11 (10-20) BUN 13 (7-21) mg/dL Creatinine 0.8 (0.8-1.5) mg/dl Est GFR ( Amer) > 60 Est GFR (Non-Af Amer) > 60 Random Glucose 93 (70-110) mg/dL Calcium 8.9 (8.4-10.5) mg/dL Total Bilirubin 0.8 (0.2-1.3) mg/dL AST 33 (17-59) U/L ALT 39 (7-56) U/L Alkaline Phosphatase 108 (38-126) U/L Total Protein 7.3 (5.8-8.3) g/dL Albumin 4.1 (3.0-4.8) g/dL Globulin 3.3 gm/dL Albumin/Globulin Ratio 1.2 (1.1-1.8) Salicylates < 1 L (2.0-20.0) mg/dL Acetaminophen < 10.0 L (10.0-20.0) ug/ml Alcohol, Quantitative (0-10) mg/dL Laboratory Results - last 24 hr 01/18/18 01/18/18 01/18/18 22:19 22:19 22:19 WBC 9.1 RBC 5.05 Hgb 16.3 Hct 46.3 MCV 91.7 MCH 32.3 MCHC 35.2 RDW 13.5 Plt Count 204 MPV 8.9 Gran % 73.8 H Lymph % (Auto) 13.3 L [place] % (Auto) 11.1 H Eos % (Auto) 1.7 Baso % (Auto) 0.1 Gran # 6.69 H Lymph # (Auto) 1.2 [place] # (Auto) 1.0 H Eos # (Auto) 0.2 Baso # (Auto) 0.01 Sodium 140 Potassium 3.9 Chloride 105 Carbon Dioxide 28 Anion Gap 11 BUN 13 Creatinine 0.8 Est GFR ( Amer) > 60 Est GFR (Non-Af Amer) > 60 Random Glucose 93 Calcium 8.9 Total Bilirubin 0.8 AST 33 ALT 39 Alkaline Phosphatase 108 Total Protein 7.3 Albumin 4.1 Globulin 3.3 Albumin/Globulin Ratio 1.2 Salicylates < 1 L Acetaminophen < 10.0 L Alcohol, Quantitative 01/18/18 01/19/18 01/19/18 22:19 08:15 08:15 WBC 8.8 RBC 5.17 Hgb 16.3 Hct 47.9 MCV 92.6 MCH 31.5 MCHC 34.0 RDW 13.6 Plt Count 177 MPV 8.9 Gran % 74.6 H Lymph % (Auto) 12.6 L [place] % (Auto) 11.1 H Eos % (Auto) 1.6 Baso % (Auto) 0.1 Gran # 6.59 H Lymph # (Auto) 1.1 L [place] # (Auto) 1.0 H Eos # (Auto) 0.1 Baso # (Auto) 0.01 Sodium 142 Potassium 4.1 Chloride 107 Carbon Dioxide 27 Anion Gap 13 BUN 15 Creatinine 0.8 Est GFR ( Amer) > 60 Est GFR (Non-Af Amer) > 60 Random Glucose 97 Calcium 8.9 Total Bilirubin 0.7 AST 43 ALT 48 Alkaline Phosphatase 113 Total Protein 7.4 Albumin 4.1 Globulin 3.3 Albumin/Globulin Ratio 1.2 Salicylates Acetaminophen Alcohol, Quantitative < 10 Radiology Impressions: Radiology Impressions Chest X-Ray 01/18/18 22:02 IMPRESSION: No active pulmonary disease. EKG/Cardiology Studies: Cardiology / EKG Studies 01/18/18 22:02 ELECTROCARDIOGRAM Stat Comment: Reason For Exam: overdose 01/19/18 07:32 EKG [ELECTROCARDIOGRAM] Stat Comment: Reason For Exam: drug overdose Critical Care Progress Note - Nutrition Nutrition: Nutrition Category Date Time Status Heart Healthy Diet [DIET] Diets 01/19/18 Lunch Active Addendum Addendum: 01/19/18 14:57 MICU Attending Addendum: 67male PMH of HTN, DM2, COPD, chronic back pain, alcohol use admitted to ICU for monitoring after xanax overdose as stated. No apparent lingerign effects of benzo. Patient is awake and alert, not concerned for resp or hemodynamic compromise. Psych eval 1:1 sitter for suicide precaution ok to transfer out of ICU Izaiah Briseno MD Pulmonary Critical Care Attending
--- NOTE | 2018-01-19 10:39 | RAD ---
Date of service: 01/18/2018 HISTORY: overdose COMPARISON: 03/10/2017. FINDINGS: LUNGS: The lungs are hyperinflated and there is peribronchial thickening with chronic changes in both lungs. No focal consolidation. PLEURA: No pleural effusions or pneumothorax. CARDIOVASCULAR: The heart is normal in size. No aortic atherosclerotic calcification present. OSSEOUS STRUCTURES: Within normal limits for the patient's age. VISUALIZED UPPER ABDOMEN: Normal. OTHER FINDINGS: None. IMPRESSION: No active pulmonary disease.
--- NOTE | 2018-01-19 13:20 | CP.PCM.APN ---
Subjective - Date & Time of Evaluation Date of Evaluation: 01/19/18 Time of Evaluation: 11:30 - Subjective Subjective: pt seen in CCU sitter at bedside , pt on suicide watch 1:1 Review of Systems - Review of Systems Systems not reviewed;Unavailable: Uncooperative Objective - Vital Signs/Intake and Output Vital Signs (last 24 hours): Temp Pulse Resp BP Pulse Ox 97.9 F 94 H 22 132/72 94 L 01/19/18 08:00 01/19/18 10:04 01/19/18 10:03 01/19/18 10:04 01/19/18 10:03 Intake and Output: 01/19/18 01/19/18 06:59 18:59 Intake Total 700 Output Total 0 Balance 700 - Medications Medications: Current Medications Amlodipine Besylate (Norvasc) 5 mg PO DAILY [facility] Last Admin: 01/19/18 10:04 Dose: 5 mg Dextrose (Dextrose 50% Inj) 0 ml IV STAT PRN; Protocol PRN Reason: Hypoglycemia Protocol Sodium Chloride (Sodium Chloride 0.9%) 1,000 mls @ 100 mls/hr IV .Q10H [facility] Last Admin: 01/19/18 12:45 Dose: 100 mls/hr Dextrose (Dextrose 5% In Water 1000 Ml) 1,000 mls @ 0 mls/hr IV .Q0M PRN; Protocol PRN Reason: Hypoglycemia Protocol Insulin Detemir (Levemir) 10 unit SC HS [facility] Pantoprazole Sodium (Protonix Ec Tab) 40 mg PO 0600 [facility] Last Admin: 01/19/18 08:09 Dose: 40 mg - Labs Labs: 01/19/18 08:15 01/19/18 08:15 Assessment and Plan - Assessment and Plan (Free Text) Plan: All Active Problems Benzodiazepine overdose (Acute) Abdominal pain (Acute) Clavicle fracture (Acute) Diabetes (Acute) Diabetic acidosis without coma (Acute) Diabetic ketoacidosis (Acute) Head injury (Acute) Leukocytosis (Acute) Near syncope (Acute) Pancreatitis (Acute) Prophylactic measure (Acute) Rib fractures (Acute) Sepsis (Acute) Thrush, oral (Acute) Weight loss, non-intentional (Acute) Pt is 67 yr old with pmh sig for htn, copd, hep c, alcohol abuse, niddm, smoker 1 ppd x 45 yrs, copd,and pancreatitis who presented to the ED with overdose on Xanax undergoing psychiatric eval and on suicide watch. Caroline Wheeler. [employer], DNP BPCI/TIC - BPCIA/TIC Educated pt/family on BPCIA/CIR/Med to Bed Programs: N/A Flyers given, including CMS Beneficiary letter: N/A Pt/family verbalized understanding & agreed to program: N/A
--- NOTE | 2018-01-19 21:38 | CARD ---
APPROVED REPORT Date of service: 01/18/2018 EKG Measurement Heart [id number] <Conclusion> Normal sinus rhythm Normal Electrocardiogram
--- NOTE | 2018-01-19 21:45 | CARD ---
APPROVED REPORT Date of service: 01/19/2018 EKG Measurement Heart [id number] MD [id number] <Conclusion> Normal sinus rhythm Normal ECG
[2018-01-19] MEDS: Insulin Detemir 100 units/ml Vial (Levemir) SC SCH (22:58)
--- NOTE | 2018-01-20 00:42 | HP ---
DATE OF EVALUATION: 01/19/2018 HISTORY OF PRESENT ILLNESS: Mr. Alvarez is a 67-year-old male, brought to the ED by EMS, accompanied by the daughter for altered mental status. The patient said that he took 30 Xanax because of anxiety. Denied any suicidal ideation. He has a history of colon resection for diverticulitis, GERD, anxiety, liver failure, hepatitis C, COPD, hypertension, diabetes mellitus. Currently awake, responding, asking that he wants to go home tonight. Currently on one-to-one for suicide watch. PAST MEDICAL HISTORY: Lung collapse, COPD, emphysema, bilateral deaf, diverticulitis, GE reflux. PAST SURGICAL HISTORY: Appendectomy, colon resection for diverticulitis. SUBSTANCE ABUSE: Opioid. ALLERGIES: NO KNOWN DRUG ALLERGIES. FAMILY HISTORY: Noncontributory. PERSONAL HISTORY: Chronic smoker, history of alcohol abuse, quit in 2015. HOME MEDICATIONS: Xanax 0.05 mg p.o. t.i.d., oxycodone 20 mg every 8 hours, Levemir 16 units every bedtime, Microzide 25 mg daily, Norvasc 5 mg daily, tramadol 50 mg every 6 hours p.r.n. REVIEW OF SYSTEMS: As per HPI. Rest of 12-point review of systems reviewed negative. PHYSICAL EXAMINATION GENERAL: Comfortable in bed, in no acute distress. VITAL SIGNS: Temperature 99.8, heart rate 83 per minute, blood pressure 120/80, respiratory rate 18 per minute, oxygen saturation 95% on room air. HEENT: Pallor positive. NECK: No lymphadenopathy. CHEST: Air entry present and equal bilaterally. No added sound. CARDIOVASCULAR: S1 and S2 normal. No murmur. No gallop. ABDOMEN: Soft, nontender. No hepatosplenomegaly. EXTREMITIES: No edema. CENTRAL NERVOUS SYSTEM: Alert and oriented x3. No focal sensory motor deficit. LABORATORY DATA: White count 8.8, hemoglobin 16.3, hematocrit 47.9, platelets 178, granulocyte 74%, lymphocyte 12%. Sodium 142, potassium 4.1, BUN 15, creatinine 0.8. LFTs within normal limits. UA: Salicylate less than 1, acetaminophen less than 10, alcohol less than 10. ASSESSMENT: 1. Xanax overdose. 2. Possible suicidal ideation. 3. Granulocytosis. 4. Chronic obstructive pulmonary disease. 5. History of gastroesophageal reflux disease. 6. Hypertension. 7. Diabetes mellitus type 2. 8. Hepatitis C. PLAN: He will be admitted to ICU, one-to-one for suicidal watch. Psychology consultation, Dr. Gautam, requested. Continue antihypertensive, Norvasc 5 mg daily, IV fluid with 5% dextrose, insulin at 10 units subcutaneously, NicoDerm Patch 1 patch transdermal daily, Protonix 40 mg daily, normal saline at 100 mL an hour. We will add Lovenox 30 mg subcutaneous daily for DVT prophylaxis. Karina Messina MD
[2018-01-20 06:37] LABS: BASO # 0.01 K/mm3 (0.0-2.0); BASO % 0.2 % (0.0-3.0); EOS # 0.3 (0.0-0.7); EOS % 4.4 % (1.5-5.0); GRAN # 3.61 (1.4-6.5); HEMOGLOBIN 14.3 g/dL (14.0-18.0); LYMPH # 1.1 (1.2-3.4); MEAN CELL VOLUME 92.1 fl (80.0-105.0); MEAN CORPUSCULAR HEMOGLOBIN 31.3 pg (25.0-35.0); MONO # 0.9 (0.1-0.6); MONO % 15.4 % (1.0-6.0); RBC 4.57 10^6/uL (3.5-6.1); RED CELL DISTRIBUTION WIDTH 13.4 % (11.5-14.5); WHITE BLOOD COUNT 5.9 10^3/uL (4.5-11.0)
[2018-01-20] MEDS: Pantoprazole 40 mg EC Tab PO SCH (06:44)
[2018-01-20 07:00] LABS: ALB/GLOB RATIO 1.1 (1.1-1.8); ALBUMIN 3.3 g/dL (3.0-4.8); ALT/SGPT 47 U/L (7-56); AST/SGOT 40 U/L (17-59); BLOOD UREA NITROGEN 14 mg/dL (7-21); CALCIUM 8.4 mg/dL (8.4-10.5); GFR NON-AFRICAN AMERICAN > 60
--- NOTE | 2018-01-20 12:09 | CP.PCM.APN ---
Subjective - Date & Time of Evaluation Date of Evaluation: 01/20/18 Time of Evaluation: 11:30 - Subjective Subjective: pt seen in the CCU pt is awake and alert, stating he feels better and wants to sign out AMA Review of Systems - Review of Systems Review of Systems: negative Objective - Vital Signs/Intake and Output Vital Signs (last 24 hours): Temp Pulse Resp BP Pulse Ox 98.5 F 81 23 143/95 H 96 01/20/18 11:31 01/20/18 09:01 01/20/18 08:12 01/20/18 09:01 01/20/18 08:12 Intake and Output: 01/20/18 01/20/18 06:59 18:59 Intake Total 1620 Output Total 1000 Balance 620 - Medications Medications: Current Medications Amlodipine Besylate (Norvasc) 5 mg PO DAILY [facility] Last Admin: 01/20/18 09:01 Dose: 5 mg Dextrose (Dextrose 50% Inj) 0 ml IV STAT PRN; Protocol PRN Reason: Hypoglycemia Protocol Dextrose (Dextrose 5% In Water 1000 Ml) 1,000 mls @ 0 mls/hr IV .Q0M PRN; Protocol PRN Reason: Hypoglycemia Protocol Insulin Detemir (Levemir) 10 unit SC HS [facility] Last Admin: 01/19/18 22:58 Dose: 10 units Nicotine (Nicoderm Cq) 1 patch TD DAILY [facility] Last Admin: 01/20/18 09:03 Dose: Not Given Pantoprazole Sodium (Protonix Ec Tab) 40 mg PO 0600 [facility] Last Admin: 01/20/18 06:44 Dose: 40 mg - Labs Labs: 01/20/18 05:30 01/20/18 05:30 - Constitutional Appears: Well, Non-toxic - Head Exam Head Exam: NORMAL INSPECTION, NORMOCEPHALIC - Eye Exam Eye Exam: PERRL Pupil Exam: NORMAL ACCOMODATION - Respiratory Exam Respiratory Exam: NORMAL BREATHING PATTERN - Cardiovascular Exam Cardiovascular Exam: +S1, +S2 - GI/Abdominal Exam GI & Abdominal Exam: Normal Bowel Sounds - Exam Exam: NORMAL INSPECTION - Neurological Exam Neuro motor strength exam: Left Upper Extremity: 5, Right Upper Extremity: 5, Left Lower Extremity: 5, Right Lower Extremity: 5 - Psychiatric Exam Psychiatric exam: Normal Affect, Normal Mood Additional comments: conversational, pleasant - Skin Skin Exam: Dry, Intact, Warm Assessment and Plan - Assessment and Plan (Free Text) Plan: Pt is 67 yr old with [facility] sig for htn, copd, hep c, alcohol abuse, niddm, smoker 1 ppd x 45 yrs, copd,and pancreatitis who presented to the ED with overdose on Xanax undergoing psychiatric eval and on suicide watch. pt asking to go home, call placed to Dr Messina, awaiting Dr Gautam input will follow up
[2018-01-20] MEDS ORDERED: DiphenhydrAMINE 50 mg/ml Inj IM PRN (12:37)
--- NOTE | 2018-01-20 12:38 | CP.PCM.PCO ---
Physician Communication Note - Physician Communication Note Physician Communication Note: Haldo+Benadryl+ativan have to be given at the same time
--- NOTE | 2018-01-20 12:40 | CP.PCM.PCO ---
Physician Communication Note - Physician Communication Note Physician Communication Note: [place] [facility] [place]/p overdose on xan[place]
--- NOTE | 2018-01-20 15:47 | CON ---
DATE: 01/20/2018 HISTORY OF PRESENT ILLNESS: In short, the patient is a 67-year-old male, multiple medical issues including hepatitis C, liver failure, COPD, hypertension, diabetes, diverticulitis, status post colon reduction, GERD, anxiety. The patient was brought in by family with altered mental status, possible drug or medication overdose. The patient was admitted to ICU. Psych consult was called for evaluation of possible suicidal ideation. The patient was seen and examined. The patient presented to be annoyed, irritable and loud. The patient wants to sign against medical advice from the hospital. The patient was providing superficial and inconsistent stories, for example, earlier the patient talked to the medical student, and he said that he was stressed out about relationship problems. While talking to this magnetic tape typewriter operator the patient said that he wanted to sleep. Going back to the event, when the patient overdosed on medication, this magnetic tape typewriter operator would like to emphasize the fact that the patient took all of the Xanax at once, approximately 30 pills, and the patient fell asleep. The patient is not willing to provide any information. The patient is agitated. Hui Lamas was called. At this point, this magnetic tape typewriter operator does not feel safe for the patient to be discharged. The patient was not sure what is the date today, and also is not sure what hospital it is. The patient adamantly refused to stay into the psychiatric inpatient unit, has poor insight. This magnetic tape typewriter operator had interaction with the patient about a year ago. Back then, the patient denied any psych history. The patient denied ever been admitted to the psychiatric inpatient unit. The patient also denied history of suicidal attempts. The patient has history of misusing and abusing pain killers, benzodiazepines, as well as addiction to the pain medication. Going back to the presentation, at this time discussed with nursing staff, the patient is impulsive, easily agitated and aggravated. The patient is currently on one-to-one. PHYSICAL EXAMINATION: VITAL SIGNS: Seemed to be stable. Temperature 98.5, pulse is 81, blood pressure 143/95, respirations 23, oxygen saturation is 96. MEDICATIONS: Reviewed. The patient is on Norvasc, dextrose, Benadryl. This magnetic tape typewriter operator will implement haloperidol, Benadryl, and Ativan IM every 6 hours in case patient will be agitated and pose imminent danger to self or others. The patient is on Levemir, Protonix. LABORATORY DATA: Labs reviewed. Most recently was from today. Toxicology reviewed. MENTAL STATUS EXAMINATION: The patient presented to be alert, eating during the interview, seems to be annoyed, irritable and easily agitated. Intense eye contact. Speech was loud and abrupt. Mood described "I'm absolutely fine, I want to go home." Thought process seems to be concrete. Thought content, the patient denied any visual, auditory, or tactile hallucinations. Denied paranoid ideations, but at the same time, the patient appears to be guarded. The patient denied thoughts of harming himself or others, but the patient was making statements that he took all of the Xanax and suicidal attempt cannot be ruled out. As per staff, the patient recently broke up with his girlfriend and tried to commit suicide, but the patient denied. IMPRESSION: Mood disorder not otherwise specified, rule out status post suicidal attempt. PLAN: The patient is uncooperative, not willing to provide history. The patient is agitated, wants to leave against medical advise, but considering the fact that the patient overdosed on all of supply of Xanax, it is not safe for the patient to go. At this point, we will initiate [facility] screening process. As-needed medications were ordered, Haldol, Benadryl and Ativan. Discussed with Dr. Messina, who shared the same impression. Staff is aware that the patient has no capacity to leave against medical advice. The patient is currently on one to one. We will initiate screening for involuntary commitment. Thank you very much for letting me participate in care of your patient. Nereyda Diaz MD
[2018-01-20] MEDS: Insulin Detemir 100 units/ml Vial (Levemir) SC SCH (21:14)
--- NOTE | 2018-01-21 01:12 | CP.PCM.PCO ---
Assessment & Plan - Assessment and Plan (Free Text) Assessment: Discussed with Dr. Dawn. He is medically cleared for transfer to Psych Unit/facility.
[2018-01-21 06:30] LABS: ALB/GLOB RATIO 1.4 (1.1-1.8); ALBUMIN 4.1 g/dL (3.0-4.8); ALT/SGPT 43 U/L (7-56); AST/SGOT 36 U/L (17-59); BLOOD UREA NITROGEN 19 mg/dL (7-21); CALCIUM 8.8 mg/dL (8.4-10.5); GFR NON-AFRICAN AMERICAN > 60
[2018-01-21 06:31] LABS: BASO # 0.01 K/mm3 (0.0-2.0); BASO % 0.1 % (0.0-3.0); EOS # 0.3 (0.0-0.7); EOS % 3.9 % (1.5-5.0); GRAN # 4.12 (1.4-6.5); GRAN % 59.8 % (50.0-68.0); HEMOGLOBIN 15.3 g/dL (14.0-18.0); LYMPH # 1.8 (1.2-3.4); LYMPH % 26.1 % (22.0-35.0); MEAN CELL VOLUME 91.6 fl (80.0-105.0); MEAN CORPUSCULAR HEMOGLOBIN 31.5 pg (25.0-35.0); MEAN CORPUSCULAR HGB CONC 34.4 g/dl (31.0-37.0); MONO # 0.7 (0.1-0.6); MONO % 10.1 % (1.0-6.0); RBC 4.86 10^6/uL (3.5-6.1); RED CELL DISTRIBUTION WIDTH 13.1 % (11.5-14.5); WHITE BLOOD COUNT 6.9 10^3/uL (4.5-11.0)
[2018-01-21 09:04] VITALS: RESP 18
[2018-01-21] MEDS: Pantoprazole 40 mg EC Tab PO SCH (10:45)
[2018-01-21 12:40] LABS: PH,URINE 6.5 (4.7-8.0); URINE BILIRUBIN NEGATIVE (NEGATIVE); URINE BLOOD NEGATIVE (NEGATIVE); URINE GLUCOSE (UA) NEGATIVE (NEGATIVE); URINE LEUKOCYTE ESTERASE NEGATIVE Leu/uL (NEGATIVE); URINE PROTEIN NEGATIVE mg/dL (<30 mg/dL)
[2018-01-21 12:42] LABS: URINE APPEARANCE CLEAR (CLEAR); URINE COLOR YELLOW (YELLOW)
[2018-01-21 12:50] LABS: BARBITURATES, UR NEGATIVE (NEGATIVE); BENZODIAZEPINES, UR POSITIVE (NEGATIVE); OPIATES, UR NEGATIVE (NEGATIVE); PHENCYCLIDINE, UR NEGATIVE (NEGATIVE)
[2018-01-21] MEDS: Insulin Detemir 100 units/ml Vial (Levemir) SC SCH (21:50)
--- NOTE | 2018-01-22 01:05 | DS ---
HISTORY OF PRESENT ILLNESS: Patient is a 67-year-old, seen and examined. Patient states he was at home. He did not sleep well, so he took a pill of extra Ativan since he wanted to sleep. He denies that he has any suicidal intent; although, he was found to have altered sensorium, so family called ambulance and he was brought to the emergency room, seems to be doing well. PHYSICAL EXAMINATION: VITAL SIGNS: He is afebrile. Pulse 67, respirations 18, blood pressure 126/88. LUNGS: Bilateral airflow. No rhonchi or crackles. HEART: S1 and S2 audible. ABDOMEN: Soft, nontender. No rebound. No guarding. NEUROLOGIC: Patient is awake, and alert, able to communicate, ambulatory. LABORATORY DATA: WBC 6.9, hemoglobin 15.3, hematocrit 44.5, platelets 184. Chemistry; sodium 141, potassium 4.4, chloride 105, CO2 of 29, BUN 19, creatinine 0.8. Blood sugar of 110. Urine tox positive for cannabinoids and benzodiazepines. ASSESSMENT: 1. Xanax overdose. 2. Status post altered mental status. 3. History of hypertension. 4. Gastroesophageal reflux disease. 5. Insulin-dependent diabetes. PLAN: Patient is clinically stable. Awaiting scanning by [facility] team. After that we will make disposition plan. Once he is accepted, he might be transferred to involuntary Psych unit at [facility]. Manolo Wynn MD
--- NOTE | 2018-01-22 01:19 | CON ---
DATE: 01/21/2018 HISTORY OF PRESENT ILLNESS: The patient is a 67-year-old male who is being seen by a Psychiatry in the medical floor after he overdosed on that. The patient was recently transferred from the ICU and Psychiatry attempted to consult the patient; however, he was quite irritable and uncooperative according to Dr. Diaz's consultation, dated 01/20/2018. The patient was providing superficial and contradictory stories regarding events that led up to his presentation. Dr. Diaz felt that the patient was not forthcoming and not entirely cooperative with unclear circumstances as well as dangerousness of overdose in context of multiple medical issues. A [facility] screening should be initiated once he is medically cleared. I reviewed recent notes that was when the patient was at bedside and appears to be little bit calmer today. He is definitely alert to month, year, location, and circumstances. He does not fully engage but does respond. He admits to taking 30 of Xanax all at once; however, he indicated he was just trying to sleep, but however, in the next minute or so the patient reminisces about his multiple medical issues and he indicates that he lives a "terrible life." The patient indicated that he has trouble sleeping. He does not want to discuss whether he is depressed or not and certainly appears little bit anxious and guarded. The patient states that he made a "stupid mistake," however, he does not appear intelligent to this provider. The patient is not willing to sign in to the psychiatric unit and he is very anxious to be discharged. The patient states that he is being punished for making his mistake and I tried to reassure him that it is very important that he has treatment for any psychiatric issues or symptoms that he might be dealing with as treatment can actually provide benefit for his mood, anxiety symptoms and sleep. I recommended if [facility] does not accept him for involuntary screening, he can follow up with this provider and he appears to be considering this recommendation. I also educated him about his dangerousness of his actions and openly questioned him about the veracity of his story as he has a history of taking maybe two Xanax at night for sleep and he decides to take 30 Xanax to sleep, but it does not appear to be a normal progression for somebody who just wanted to sleep. Overall, his process is coherent. He appears depressed and he is mildly petulant, however, he is not angry or demanding or swearing, and he appears much of aggravated than prior notes from yesterday have indicated. Inside and judgment considered to be poor by this provider. Labs and vital signs were reviewed. MEDICATIONS: Benadryl 50 mg IM every 6 hours p.r.n. with Haldol 5 mg IM every 6 hours p.r.n. for agitation, Ativan 2 mg IM every 6 hours p.r.n. IMPRESSION: Mood disorder, not otherwise specified, rule out major depressive disorder, likely anxiety disorder as the patient is being prescribed Xanax by primary care doctor. RECOMMENDATIONS: I definitely agree with Dr. Diaz. The patient should be screened for involuntary treatment at [facility] due to dangerousness of his overdose as his story cannot be believed that this was not a suicide attempt. He does not appear genuine regarding the story either. Also he does not verbalize any remorse except that the fact that he is being punished for overdosing. Psychiatry will continue to follow up the patient while he remains hospitalized, however, he may not sign out AMA. David Gautam MD
[2018-01-22] MEDS: Pantoprazole 40 mg EC Tab PO SCH (06:28)
[2018-01-22 07:07] LABS: BASO # 0.01 K/mm3 (0.0-2.0); BASO % 0.1 % (0.0-3.0); EOS # 0.2 (0.0-0.7); EOS % 2.5 % (1.5-5.0); GRAN # 4.39 (1.4-6.5); HEMOGLOBIN 15.6 g/dL (14.0-18.0); LYMPH # 1.6 (1.2-3.4); LYMPH % 23.8 % (22.0-35.0); MEAN CELL VOLUME 90.5 fl (80.0-105.0); MEAN CORPUSCULAR HEMOGLOBIN 31.5 pg (25.0-35.0); MEAN CORPUSCULAR HGB CONC 34.7 g/dl (31.0-37.0); MEAN PLATELET VOLUME 8.9 fl (7.0-11.0); MONO # 0.5 (0.1-0.6); MONO % 7.6 % (1.0-6.0); RBC 4.96 10^6/uL (3.5-6.1); RED CELL DISTRIBUTION WIDTH 12.9 % (11.5-14.5); WHITE BLOOD COUNT 6.7 10^3/uL (4.5-11.0)
[2018-01-22 07:28] LABS: ALBUMIN 4.1 g/dL (3.0-4.8); BLOOD UREA NITROGEN 20 mg/dL (7-21); CALCIUM 9.2 mg/dL (8.4-10.5); GFR NON-AFRICAN AMERICAN > 60
[2018-01-22 07:29] LABS: ALB/GLOB RATIO 1.3 (1.1-1.8); ALT/SGPT 54 U/L (7-56); AST/SGOT 47 U/L (17-59)
[2018-01-22 08:15] VITALS: BP 125/86; PULSE 68; TEMP 97.7; O2SAT 94
--- NOTE | 2018-01-22 13:38 | CON ---
DATE: 01/22/2018 HISTORY OF PRESENT ILLNESS: The patient is a 67-year-old male who is being seen by psychiatry and medical data entry clerk. He deliberately overdosed on [address] Diaz met with the patient 2 days ago and met with the patient yesterday and today. Dr. Diaz and I both recommended the patient to be seen by [facility] for involuntary psychiatric commitment due to dangerousness of his suicide attempt; however, recent nursing dose indicate that nurse from [facility] evaluated and determined that he did not meet criteria for involuntary commitment. I met with him at bedside again today and the patient again indicates that he regrets about his attempt and indicates that he would never try anything like that again and still indicate that he was really just trying to sleep. I explained him about taking too many Xanax and strongly recommend that he followup with outpatient psychiatrist as Xanax is not an appropriate medication to help him with sleep especially since it can also can contribute to confusion. The patient is coherent, friendly, and pleasant, although anxious to finally be discharged. Thought process is generally goal directed and there have been no major behavioral issues associated with his discharge. There is no evidence of perceptional disturbance and insight and judgment are improved. Medication reviewed. MEDICATIONS: Benadryl, p.r.n. Haldol, and Ativan p.r.n. IMPRESSION: 1. Mood disorder, not otherwise specified. 2. Rule out major depressive disorder, likely anxiety disorder as the patient is being prescribed Xanax by primary care doctor. RECOMMENDATIONS: As the patient associates to despair on inpatient voluntary psychiatric admission, he will be discharged as [facility] nurse have not deemed that he meets the criteria for involuntarily admission. I have given him referral to our neighborhood at our outpatient clinic here in the hospital strongly recommending that he follows up. I also strongly recommended that this patient also use his Xanax that primary team titration with a tapering dose of the benzodiazepine making sure that he does not go into further withdrawal. This dose should be very low that just Ativan 0.5 mg daily for perhaps 5 days. Other than that, this provider will find out. Gordonrachel MD [facility] # [id number]
--- NOTE | 2018-01-23 00:42 | DS ---
HISTORY OF PRESENT ILLNESS: The patient is 67-year-old, seen and examined, doing well, pacing up and down, wants to go home, was evaluated by Crisis team from [facility], and they declared him psychologically clear, no need for psych admission. No nausea, vomiting. No diarrhea. Eating and tolerating. Anxious to go home. PHYSICAL EXAMINATION: VITAL SIGNS: He is afebrile, pulse 68, respirations 18, blood pressure 125/86. LUNGS: Bilateral fair airflow. No rhonchi or crackle. HEART: S1 and S2 audible. ABDOMEN: Soft, nontender. No rebound. No guarding. NEUROLOGICAL: The patient is awake, alert, oriented, communicative, ambulatory. LABORATORY EXAM: WBC is 6.7, hemoglobin 15, hematocrit 44, platelets 203. Chemistry: Sodium 140, potassium 5.3, chloride 104, CO2 of 31, BUN 20, creatinine 0.9, blood sugar of 83. Urine tox was positive for cannabinoid and benzodiazepine. ASSESSMENT: 1. Xanax overdose. The patient denies suicidal ideation. He states he was unable to sleep, so he did take 2-3 pills of 1 mg, but he thought a couple of extra pills of 0.5 is not going to be that strong; however, he is doing well. 2. Anxiety disorder. 3. Wro-[id number] diabetes. 4. Hypertension. 5. Questionable suicidal attempt. PLAN: The patient is being sent home today. He is cleared from psych point of view. He will resume his medications including Levemir, amlodipine, and Protonix. He will follow up with his PMD. Manolo Wynn MD
== END 2018-01-22 13:13 | disposition home or self-care (01) | DRG 918 ==
LOC: ED 21:28 → ERH 01-19 00:24 → CCU 01-19 02:31 → 3RSO 01-21 06:45
PROVIDERS: ADMIT Internal Medicine Medical Oncology; ATTEND Internal Medicine Medical Oncology
DX: T42.4X2A Poisoning by benzodiazepines, intentional self-harm, initial encounter (principal); J44.9 Chronic obstructive pulmonary disease, unspecified; I10 Essential (primary) hypertension; E11.9 Type 2 diabetes mellitus without complications; F10.10 Alcohol abuse, uncomplicated; B19.20 Unspecified viral hepatitis C without hepatic coma; M54.9 Dorsalgia, unspecified; G89.29 Other chronic pain; F32.9 Major depressive disorder, single episode, unspecified; F41.9 Anxiety disorder, unspecified; F39 Unspecified mood [affective] disorder; H91.93 Unspecified hearing loss, bilateral; K21.9 Gastro-esophageal reflux disease without esophagitis; Z79.4 Long term (current) use of insulin; Z72.0 Tobacco use